=== PATIENT | male | born 1940 | race Caucasian/White ===

== ENCOUNTER → 2019-08-28 | Outpatient (CLI) | payer MEDICARE, OTHER ==
--- NOTE | 2019-08-28 14:47 | US ---
EXAMINATION TYPE: US venous doppler duplex LE BI DATE OF EXAM: 08/28/2019 2:33 PM COMPARISON: NONE CLINICAL HISTORY: R79.1 Positive D dimer, R06.[address] chest scheduled too; on Chem otherapy for Bladder CA SIDE PERFORMED: Bilateral TECHNIQUE: The lower extremity deep venous system is examined utilizing real time linear array sonog jerzy with graded compression, doppler sonography and color-flow sonography. VESSELS IMAGED: Common Femoral Vein Deep Femoral Vein Greater Saphenous Vein * Femoral Vein Popliteal Vein Small Saphenous Vein * Proximal Calf Veins (* superficial vessels) Right Leg: Negative for DVT Left Leg: Negative for DVT IMPRESSION: No evidence for DVT at this time.
--- NOTE | 2019-08-28 15:24 | CT ---
EXAMINATION TYPE: CT angio chest DATE OF EXAM: 08/28/2019 COMPARISON: None HISTORY: 79-year-old male Elevated D-dimer, shortness of breath and bilateral ankle swelling. TECHNIQUE: Contiguous axial scanning of the chest performed with IV Contrast, patient injected with 6 1ml mL of Isovue 370. Coronal/sagittal MIP reconstructions performed. CT DLP: 256.6 mGycm Automated exposure control for dose reduction was used. FINDINGS: Heart normal size without pericardial effusion. No flattening of the interventricular septum or reflu x of contrast into the hepatic veins. Extensive three-vessel coronary artery calcifications are prese nt. Aorta normal caliber with mild atherosclerotic arch calcifications and conventional vessel branching anatomy. Prominent but nonenlarged 9 mm lower right paratracheal lymph node. No thoracic lymphadenopathy by CT size criteria. Borderline enlarged caliber to the main right and left pulmonary arteries at 2.5 cm, each. Satisfactory opacification of the pulmonary arterial system without evidence for pulmonary embolus. Mild diffuse bronchial wall thickening. Minimal scattered emphysematous change. No consolidation or p leural effusion. Suggestion of trace effusions. Some post surgical change at the GE junction. Unable to exclude a tiny hiatal hernia. 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 IMPRESSION: 1. NO EVIDENCE FOR PULMONARY EMBOLUS. 2. CAD WITH EXTENSIVE THREE-VESSEL CORONARY ARTERY CALCIFICATIONS. 3. TRACE EFFUSIONS AND POSSIBLE UNDERLYING PULMONARY ARTERIAL HYPERTENSION. CORRELATE FOR MILD CHF.
== END | disposition home or self-care (01) ==
LOC: RADCTMAIN 13:51
PROVIDERS: ATTEND Family Medicine
DX: I25.10 Atherosclerotic heart disease of native coronary artery without angina pectoris (principal); R79.1 Abnormal coagulation profile; R06.02 Shortness of breath; R60.9 Edema, unspecified; Z88.8 Allergy status to other drugs, medicaments and biological substances
CPT/HCPCS: 82565; 84520; 93970; 71275; 36415; Q9967

== ENCOUNTER 2019-10-31 16:49 | Emergency (ER) | payer MEDICARE, OTHER ==
[2019-10-31] MEDS ORDERED: ACETAMINOPHEN TAB 500 MG TAB PO STA (16:59)
[2019-10-31] MEDS ORDERED: SODIUM CHLORIDE 0.9% 1,000 ML IV SCH (17:00)
--- NOTE | 2019-10-31 17:19 | ED ---
General Adult HPI - General Chief complaint: Fever Stated complaint: Bowel Issues, Fever Time Seen by Provider: 10/31/19 16:59 Source: patient Mode of arrival: ambulatory Limitations: no limitations - History of Present Illness Initial comments: Dictation was produced using [employer] dictation software. please excuse any grammatical, word or spelling errors. This patient was cared for during a federal and state declared state of emergency secondary to Covid 19 Chief Complaint: 79-year-old male presents with on and off constitutional s ymptoms. History of Present Illness:-year-old male for the last 4 days he's been having on-and-off fevers. Patient's fever started on Monday. She states he had low- grade temperature the following day. Yesterday he had no fever. Today he had a temperature 103. Patient stats that he has been having on-and-off abdominal symptoms. Currently denies any abdominal pain. He states the pain is supr apubic and slightly to the left. One month ago patient had bladder and prostate surgery at [facility]. Patient has any cough. No sore throat. No diarrhea. No ear pain. No chest pain. No rash. He does have an ostomy to the right lower quadrant The ROS documented in this emergency department record has been reviewed and confirmed by me. Those systems with pertinent positive or negative responses have been documented in the HPI. All other systems are other negative and/or no ncontributory. PHYSICAL EXAM: General Impression: Alert and oriented x3, not in acute distress HEENT: Normocephalic atraumatic, extra-ocular movements intact, pupils equal and reactive to light bilaterally, mucous membranes moist. Cardiovascular: Heart regular rate and rhythm Chest: Able to complete full sentences, no retractions, no tachypnea Abdomen: abdomen soft, non-tender, non-distended, no organomegaly, ostomy is pink without any erythema of the overlying skin Musculoskeletal: Pulses present and equal in all extremities, no peripheral edema Motor: no focal deficits noted Neurological: CN II-XII grossly intact, no focal motor or sensory deficits noted Skin: Intact with no visualized rashes Psych: Normal affect and mood ED course: 79-year-old male presents with constitutional symptoms. Upon arrival shows temperature 103, heart rate 114, rest of vital signs within acceptable limits. Patient doesn't have any obvious localizing symptoms. Seems to be asymptomatic at this time. Chest x-ray is unremarkable. CT of the abdomen and pelvis with contrast was obtained showing fluid attenuation of 6 x 6 x 3 cm to the right pelvic sidewall. Urinalysis shows urinary tract infection however it's unclear if this is contamination from urostomy bag. Case is discussed with patient's primary surgeon Dr. Savage at [facility]. Patient recommends that patient be admitted and started on antibiotics. Patient given ceftriaxone and Flagyl. She requests that she be evaluated for possible percutaneous draining of this fluid. Discussed patient case with our urologist in our emergency room physician. They do not feel comfortable with patient having care here in the hospital. Our physicians feel patient would be best suited being transferred to [facility] where his primary surgeon is. Discussed patient case with Dr. Ferrari at [facility]. who is willing to accept patient for ER to ER transfer. EKG interpretation: Ventricular rate 95, normal sinus rhythm,. 156, QRS 90, QTc 454. No IA prolongation, no QTC prolongation, no ST or T-wave changes noted. No old EKG for comparison. Overall, this EKG is unremarkable - Related Data Home Medications Medication Instructions Recorded Confirmed hydroCHLOROthiazide [Hydrodiuril] 25 mg PO DAILY 08/07/15 10/31/19 ALPRAZolam [Xanax] 0.5 mg PO TID PRN 10/31/19 10/31/19 Apple Pectin 700mg Caps 1,400 mg PO DAILY 10/31/19 10/31/19 Aspirin EC [Ecotrin Low Dose] 81 mg PO DAILY 10/31/19 10/31/19 Atorvastatin Calcium [Lipitor] 40 mg PO DAILY 10/31/19 10/31/19 Docusate [Colace] 100 mg PO DAILY PRN 10/31/19 10/31/19 Famotidine [Pepcid] 20 mg PO BID 10/31/19 10/31/19 Flunisolide Nasal [place] [Nasalide] 1 - 2 spray EA NOSTRIL DAILY 10/31/19 10/31/19 Gabapentin 600 mg PO BID 10/31/19 10/31/19 Multivitamins, Thera [Multivitamin 1 tab PO DAILY 10/31/19 10/31/19 (formulary)] Prochlorperazine Maleate 10 mg PO Q6H PRN 10/31/19 10/31/19 Sildenafil Citrate [Viagra] 50 mg PO DAILY PRN 10/31/19 10/31/19 Allergies Allergy/AdvReac Type Severity Reaction Status Date / Time No Known Allergies Allergy Verified 10/31/19 17:55 Review of Systems ROS Statement: Those systems with pertinent positive or pertinent negative responses have been documented in the HPI. ROS Other: All systems not noted in ROS Statement are negative. Past Medical History Past Medical History: Cancer, Hypertension Additional Past Medical History / Comment(s): BLADDER CANCER History of Any Multi-Drug Resistant Organisms: None Reported Past Surgical History: Hernia Repair Additional Past Surgical History / Comment(s): RIGHT AND LEFT SHOULDER, RIGHT AND LEFT INGUINAL HERNIA, prostate and bladder removed. Past Anesthesia/Blood Transfusion Reactions: No Reported Reaction Past Psychological History: Anxiety Smoking Status: Never smoker Past Alcohol Use History: Rare Past Drug Use History: None Reported - Past Family History Mother Family Medical History: No Reported History General Exam Limitations: no limitations Course Vital Signs 10/31/19 10/31/19 10/31/19 16:53 18:56 20:00 Temperature 103 F H 101.1 F H Pulse Rate 114 H 89 85 Respiratory 16 19 16 Rate Blood Pressure 159/76 117/72 124/66 O2 Sat by Pulse 97 98 98 Oximetry 10/31/19 20:45 Temperature 98.3 F Pulse Rate Respiratory Rate Blood Pressure O2 Sat by Pulse Oximetry Medical Decision Making - Lab Data Result diagrams: 10/31/19 17:26 10/31/19 17:26 Lab Results 10/31/19 10/31/19 10/31/19 Range/Units 17:26 17:26 17:26 WBC 8.5 (3.8-10.6) k/uL RBC 3.54 L (4.30-5.90) m/uL Hgb 11.0 L (13.0-17.5) gm/dL Hct 33.7 L (39.0-53.0) % MCV 95.3 D (80.0-100.0) fL MCH 31.1 (25.0-35.0) pg MCHC 32.7 (31.0-37.0) g/dL RDW 13.7 (11.5-15.5) % Plt Count 262 (150-450) k/uL Neutrophils % 70 % Lymphocytes % 16 % Monocytes % 6 % Eosinophils % 4 % Basophils % 0 % Neutrophils # 5.9 (1.3-7.7) k/uL Lymphocytes # 1.4 (1.0-4.8) k/uL Monocytes # 0.5 (0-1.0) k/uL Eosinophils # 0.3 (0-0.7) k/uL Basophils # 0.0 (0-0.2) k/uL PT 10.2 (9.0-12.0) sec INR 1.0 (<1.2) APTT 25.9 (22.0-30.0) sec Sodium (137-145) mmol/L Potassium (3.5-5.1) mmol/L Chloride (98-107) mmol/L Carbon Dioxide (22-30) mmol/L Anion Gap mmol/L BUN (9-20) mg/dL Creatinine (0.66-1.25) mg/dL Est GFR (CKD-EPI)AfAm (>60 ml/min/1.73 sqM) Est GFR (CKD-EPI)NonAf (>60 ml/min/1.73 sqM) Glucose (74-99) mg/dL Plasma Lactic Acid [place] (0.7-2.0) mmol/L Calcium (8.4-10.2) mg/dL Total Bilirubin (0.2-1.3) mg/dL AST (17-59) U/L ALT (4-49) U/L Alkaline Phosphatase (38-126) U/L Total Protein (6.3-8.2) g/dL Albumin (3.5-5.0) g/dL Lipase (23-300) U/L Urine Color Yellow Urine Appearance Cloudy (Clear) Urine pH 5.5 (5.0-8.0) Ur Specific [place] 1.012 (1.001-1.035) Urine Protein Trace H (Negative) Urine Glucose (UA) Negative (Negative) Urine Ketones Negative (Negative) Urine Blood Trace H (Negative) Urine Nitrite Positive (Negative) Urine Bilirubin Negative (Negative) Urine Urobilinogen <2.0 (<2.0) mg/dL Ur Leukocyte Esterase Large H (Negative) Urine RBC 5 (0-5) /hpf Urine WBC 48 H (0-5) /hpf Ur Squamous Epith Cells <1 (0-4) /hpf Urine Bacteria Rare H (None) /hpf Urine Mucus Rare H (None) /hpf Urine Yeast (Budding) Few H (None) /hpf 10/31/19 10/31/19 Range/Units 17:26 17:26 WBC (3.8-10.6) k/uL RBC (4.30-5.90) m/uL Hgb (13.0-17.5) gm/dL Hct (39.0-53.0) % MCV (80.0-100.0) fL MCH (25.0-35.0) pg MCHC (31.0-37.0) g/dL RDW (11.5-15.5) % Plt Count (150-450) k/uL Neutrophils % % Lymphocytes % % Monocytes % % Eosinophils % % Basophils % % Neutrophils # (1.3-7.7) k/uL Lymphocytes # (1.0-4.8) k/uL Monocytes # (0-1.0) k/uL Eosinophils # (0-0.7) k/uL Basophils # (0-0.2) k/uL PT (9.0-12.0) sec INR (<1.2) APTT (22.0-30.0) sec Sodium 134 L (137-145) mmol/L Potassium 4.4 (3.5-5.1) mmol/L Chloride 98 (98-107) mmol/L Carbon Dioxide 23 (22-30) mmol/L Anion Gap 13 mmol/L BUN 24 H (9-20) mg/dL Creatinine 1.14 (0.66-1.25) mg/dL Est GFR (CKD-EPI)AfAm 71 (>60 ml/min/1.73 sqM) Est GFR (CKD-EPI)NonAf 61 (>60 ml/min/1.73 sqM) Glucose 110 H (74-99) mg/dL Plasma Lactic Acid [place] 1.1 (0.7-2.0) mmol/L Calcium 9.0 (8.4-10.2) mg/dL Total Bilirubin 0.8 (0.2-1.3) mg/dL AST 37 (17-59) U/L ALT 25 (4-49) U/L Alkaline Phosphatase 117 (38-126) U/L Total Protein 7.2 (6.3-8.2) g/dL Albumin 4.0 (3.5-5.0) g/dL Lipase 89 (23-300) U/L Urine Color Urine Appearance (Clear) Urine pH (5.0-8.0) Ur Specific [place] (1.001-1.035) Urine Protein (Negative) Urine Glucose (UA) (Negative) Urine Ketones (Negative) Urine Blood (Negative) Urine Nitrite (Negative) Urine Bilirubin (Negative) Urine Urobilinogen (<2.0) mg/dL Ur Leukocyte Esterase (Negative) Urine RBC (0-5) /hpf Urine WBC (0-5) /hpf Ur Squamous Epith Cells (0-4) /hpf Urine Bacteria (None) /hpf Urine Mucus (None) /hpf Urine Yeast (Budding) (None) /hpf Disposition Clinical Impression: Pelvic infection Disposition: OTHER INSTITUTION NOT DEFINED Condition: Fair Referrals: Susan Dela Cruz MD [Primary Care Provider] - 1-2 days Time of Disposition: 21:00 - Out of Hospital Transfer - Req. Specs Out of Hospital Transfer - Requested Specifics: Other Emergency Center ([facility])
[2019-10-31 18:05] LABS: Basophils % (A) 0 %; Eosinophils # (A) 0.3 k/uL (0-0.7); Eosinophils % (A) 4 %; HCT 33.7 % (39.0-53.0); Lymphocytes # (A) 1.4 k/uL (1.0-4.8); Lymphocytes % (A) 16 %; MCH 31.1 pg (25.0-35.0); MCHC 32.7 g/dL (31.0-37.0); Mean Platelet Volume 7.3; Monocytes # (A) 0.5 k/uL (0-1.0); Monocytes % (A) 6 %; Neutrophils # (A) 5.9 k/uL (1.3-7.7); Neutrophils % (A) 70 %; Platelet Count 262 k/uL (150-450); RBC 3.54 m/uL (4.30-5.90); RDW 13.7 % (11.5-15.5); WBC 8.5 k/uL (3.8-10.6)
[2019-10-31 18:15] LABS: Potassium 4.4 mmol/L (3.5-5.1); Total Bilirubin 0.8 mg/dL (0.2-1.3); Total Protein 7.2 g/dL (6.3-8.2)
[2019-10-31 18:25] LABS: MCV 95.3 fL (80.0-100.0)
[2019-10-31 18:27] LABS: Appearance,Urine Cloudy (Clear); Bacteria,Urine Rare /hpf; Bilirubin,Urine Negative (Negative); Blood,Urine Trace (Negative); Budding Yeast,Urine Few /hpf; Color,Urine Yellow; Glucose,Urine (UA) Negative (Negative); Ketones,Urine Negative (Negative); Leukocyte Esterase,Urine Large (Negative); Mucus,Urine Rare /hpf; Nitrite,Urine Positive (Negative); PH, Urine 5.5 (5.0-8.0); Protein,Urine Trace (Negative); RBC,Urine 5 /hpf (0-5); Specific Gravity,Urine 1.012 (1.001-1.035); Squamous Epithelial Cell,Urine <1 /hpf (0-4); Urobilinogen,Urine <2.0 mg/dL (<2.0); WBC,Urine 48 /hpf (0-5)
[2019-10-31 18:30] LABS: Partial Thromboplastin Time 25.9 sec (22.0-30.0); Prothrombin Time 10.2 sec (9.0-12.0)
[2019-10-31] MEDS ORDERED: cefTRIAXone IN SWFI 1,000 MG/10 ML SYRINGE IVP STA (18:39)
--- NOTE | 2019-10-31 19:00 | XR ---
EXAMINATION: XR chest 1V portable DATE AND TIME: 10/31/2019 6:36 PM CLINICAL INDICATION: PHH; Fever TECHNIQUE: Departmental protocol COMPARISON: CT 08/28/2019 FINDINGS: The lungs are clear. The pleural spaces are negative. The cardiac silhouette is not enlarged. The remainder of the mediastinal silhouette is unremarkable. The skeletal structures and soft tissues are negative for acute findings. IMPRESSION: No definite acute radiographic process.
--- NOTE | 2019-10-31 19:55 | CT ---
EXAMINATION TYPE: CT abdomen pelvis w con DATE OF EXAM: 10/31/2019 COMPARISON: HISTORY: Abdominal pain, fever. CT DLP: 908.1 mGycm Automated exposure control for dose reduction was used. TECHNIQUE: Helical acquisition of images was performed from the lung bases through the pelvis. CONTRAST: Performed without Oral Contrast and with IV Contrast, patient injected with 80 mL of Isovue 300. FINDINGS: LUNG BASES: No significant abnormality is appreciated. LIVER/GB: No significant abnormality is appreciated. PANCREAS: No significant abnormality is seen. SPLEEN: No significant abnormality is seen. ADRENALS: No significant abnormality is seen. KIDNEYS: No significant abnormality is seen. FREE AIR: No free air is visualized. RETROPERITONEAL ADENOPATHY: None visualized REPRODUCTIVE ORGANS: No significant abnormality is seen URINARY BLADDER: No significant abnormality is seen. PELVIC ADENOPATHY: None visualized. OSSEOUS STRUCTURES: No significant abnormality is seen. BOWEL: No significant abnormality is seen. VASCULATURE: No acute vascular findings. There are atherosclerotic calcifications seen throughout th e visualized arterial anatomy, including the coronary arteries. LOWER PELVIS FINDINGS: There is fluid-attenuation 6 x 6 x 3 cm finding adjacent to the right pelvic sidewall at the level of the hips with impingement interface of bowel loops which are not opacified. There is at least a small volume of peritoneal fluid posteriorly at the midline lower pelvic position . For further characterization, oral contrast with 2 hour delay imaging can fully characterize these findings, and if done this evening and the IV contrast well opacified the lower urinary collecting sy stems. This will delineate all structures. OTHER: Partially-visualized right scrotal fluid suggests hydrocele. IMPRESSION: LOWER RIGHT HEMIPELVIC FLUID ATTENUATION FINDING FOR WHICH FURTHER CT CHARACTERIZATION IS SUGGESTED.
[2019-10-31 20:14] VITALS: RESP 16
[2019-10-31] MEDS ORDERED: metroNIDAZOLE-NS PMX 500 MG in SALINE 1 100ML.BAG IVPB STA (20:21)
[2019-10-31 22:11] VITALS: BP 149/62; PULSE 78; TEMP 98.4
== END 2019-10-31 22:10 | disposition other institution (70) ==
LOC: EC 16:49
DX: L08.9 Local infection of the skin and subcutaneous tissue, unspecified (principal); I10 Essential (primary) hypertension; F41.9 Anxiety disorder, unspecified; Z20.828 Contact with and (suspected) exposure to other viral communicable diseases; Z79.82 Long term (current) use of aspirin; Z79.899 Other long term (current) drug therapy; Z85.51 Personal history of malignant neoplasm of bladder
CPT/HCPCS: 99285; 96365; 96375; 96361 ×4; 36415; 93005; 80053; 83605; 83690; 85025; 85610; 85730; 81001; 87040; 87086; 71045; 74177; U0003; J0696; Q9967

== ENCOUNTER → 2021-06-21 | Outpatient (CLI) | payer MEDICARE, OTHER ==
[2021-06-21 10:52] LABS: ALT 17 U/L (10-49); AST 22 U/L (14-35); Chol/HDL Ratio 2.67 Ratio
== END | disposition home or self-care (01) ==
LOC: LABWHC1 07:59
PROVIDERS: ATTEND Internal Medicine Interventional Cardiology
DX: E78.2 Mixed hyperlipidemia (principal)
CPT/HCPCS: 36415; 80061; 84450; 84460

== ENCOUNTER → 2021-12-27 | Outpatient (CLI) | payer MEDICARE, OTHER ==
[2021-12-27 11:41] LABS: Chol/HDL Ratio 2.59 Ratio; LDL Cholesterol,Calculated 79.7 mg/dL (0.0-131.0); VLDL Calculation 15.96 mg/dL (5.00-40.00)
[2021-12-27 11:53] LABS: ALT 20 U/L (10-49); AST 50 U/L (14-35)
== END | disposition home or self-care (01) ==
LOC: LABWHC1 08:04
PROVIDERS: ATTEND Internal Medicine Interventional Cardiology
DX: E78.2 Mixed hyperlipidemia (principal)
CPT/HCPCS: 36415; 80061; 84450; 84460

== ENCOUNTER → 2022-06-13 | Outpatient (CLI) | payer MEDICARE, OTHER ==
[2022-06-13 16:23] LABS: ALT 22 U/L (10-49); AST 22 U/L (14-35); Albumin 4.1 g/dL (3.8-4.9); Albumin/Globulin Ratio 1.59 (1.60-3.17); Alkaline Phosphatase 63 U/L (41-126); Blood Urea Nitrogen 15.2 mg/dL (9.0-27.0); Calcium 9.4 mg/dL (8.7-10.3); Carbon Dioxide 27.2 mmol/L (20.0-27.5); Chloride 107 mmol/L (96-109); Chol/HDL Ratio 2.45 Ratio; Globulin 2.6 g/dL (1.6-3.3); Glucose 104 mg/dL (70-110); LDL Cholesterol,Calculated 76.2 mg/dL (0.0-131.0); Non-African American GFR(CKD) 68.1 (60.0-200.0); Sodium 143 mmol/L (135-145); Total Protein 6.7 g/dL (6.2-8.2); VLDL Calculation 16.12 mg/dL (5.00-40.00)
== END | disposition home or self-care (01) ==
LOC: LABWHC1 09:42
PROVIDERS: ATTEND Internal Medicine Interventional Cardiology
DX: I10 Essential (primary) hypertension (principal); E78.2 Mixed hyperlipidemia
CPT/HCPCS: 36415; 80053; 80061